=== PATIENT | male | born 1955 | race African-American/Black ===

== ENCOUNTER 2021-11-09 15:35 | Emergency (ER) | payer MEDICARE, OTHER ==
[~2021-11-09] VITALS: Ht 182.9 cm; Wt 95.9 kg
[2021-11-09] MEDS ORDERED: ORPHENADRINE CITRATE 60 MG/2 ML VIAL. IM ONE (16:15)
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
[2021-11-09 17:15] VITALS: BP 162/92
[2021-11-09] MEDS ORDERED: ORPH-16 PO (17:36)
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
== END 2021-11-09 17:53 | disposition home or self-care (01) ==
LOC: ER 15:35
DX: S16.1XXA Strain of muscle, fascia and tendon at neck level, initial encounter (principal); M79.661 Pain in right lower leg; I10 Essential (primary) hypertension; F20.9 Schizophrenia, unspecified; F43.10 Post-traumatic stress disorder, unspecified; V53.5XXA Driver of pick-up truck or van injured in collision with car, pick-up truck or van in traffic accident, initial encounter; Y93.I9 Activity, other involving external motion; Y92.89 Other specified places as the place of occurrence of the external cause; Y99.8 Other external cause status
CPT/HCPCS: 29515; 70450; 72125; 73590; 96372; 99284; J2360